=== PATIENT | female | born 1960 | race Caucasian/White ===

== ENCOUNTER 2021-01-16 12:48 | Emergency (ER) | payer OTHER ==
--- NOTE | 2021-01-16 13:01 | EDM.PDOC ---
ED HPI GENERAL MEDICAL PROBLEM - General Stated Complaint: SOB Time Seen by Provider: 01/16/21 13:00 Source of Information: Reports: Patient History Limitations: Reports: No Limitations - History of Present Illness INITIAL COMMENTS - FREE TEXT/NARRATIVE: 60-year-old female who reports at about a little dizzy and somewhat nauseated and she felt that her blood sugar might be low. She states that she had just taken her diabetic shot (Soliqua) in preparation to eat something for lunch and began to feel feel the above symptoms. She ate 2 bars with glucose. She states she was still feeling poorly after this and was feeling very dizzy and weak and somewhat nauseated and also felt very hot all over and was sweating resents to the emergency department via private vehicle with similar complaints. She did not act her blood sugar there but her blood sugar here was 75. She also reports that she was feeling very chilled and was quite diaphoretic. Her temperature at that time was 95.8. She had had nausea but no vomiting. Prior to this, she reports she was feeling quite well and had had no problems. She had been eating and drinking normally. He had had no dysuria or hematuria. No cough or nasal congestion. No sore throat. Approximately 10 days ago she did have some episodic dizziness that was associated with one episode of vomiting but that has since resolved and she has had no other symptoms since then. She reports she has been taking her medications as directed. She denies any pain now. She rates her pain as a 0/10. There are no other associated signs or symptoms. There are no other modifying factors. Onset: Today (At about 11:30 AM to 12 noon) Duration: Constant (Acute onset.) Location: Reports: Other (Not applicable) Quality: Reports: Other (Not applicable) Improves with: Reports: None Worsens with: Reports: None Context: Reports: Other (As above.) Associated Symptoms: Reports: Fever/Chills (Sweating. 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) - Related Data Allergies Allergy/AdvReac Type Severity Reaction Status Date / Time Sulfa (Sulfonamide Allergy Rash Verified 01/16/21 13:03 Antibiotics) Home Meds: Home Meds Albuterol Sulfate [Albuterol Sulfate Hfa] 1 puff INH ASDIRECTED PRN 01/16/21 [History] Benzonatate 200 mg PO ASDIRECTED PRN 01/16/21 [History] Clopidogrel Bisulfate [Clopidogrel] 75 mg PO DAILY 01/16/21 [History] Escitalopram [Lexapro] 20 mg PO BEDTIME 01/16/21 [History] Insulin Glargine/Lixisenatide [Soliqua 100 Unit-33 Mcg/ml Pen] 34 units SUBCUT DAILY 01/16/21 [History] Losartan [Cozaar] 50 mg PO DAILY 01/16/21 [History] atorvaSTATin Calcium [Lipitor] 40 mg PO DAILY 01/16/21 [History] cephALEXin [Keflex] 500 mg PO TID 7 Days #21 cap 01/16/21 [Rx] metFORMIN HCl [Metformin HCl] 1,000 mg PO BID 01/16/21 [History] Past Medical History Cardiovascular History: Reports: CAD, High Cholesterol, Hypertension, [place] Psychiatric History: Reports: Anxiety, Depression Endocrine/Metabolic History: Reports: Diabetes, Type II - Past Surgical History Musculoskeletal Surgical History: Reports: ORIF (Left wrist and right ankle) Oncologic Surgical History: Reports: Biopsy of Breast (2) Social & Family History - Tobacco Use Tobacco Use Status *Q: Unknown Ever Used Tobacco (Nonsmoker) - Alcohol Use Alcohol Use History: No - Recreational Drug Use Recreational Drug Type: Reports: Marijuana/Hashish - Living Situation & Occupation Occupation: Employed ED ROS GENERAL - Review of Systems Review Of Systems: See Below Constitutional: Reports: Chills, Diaphoresis HEENT: Denies: Throat Pain, Throat Swelling Respiratory: Denies: Shortness of Breath, Cough Cardiovascular: Reports: Lightheadedness. Denies: Chest Pain, Dyspnea on Exertion Endocrine: Reports: Low Glucose GI/Abdominal: Reports: Nausea, Vomiting. Denies: Abdominal Pain, Diarrhea : Denies: Dysuria, Flank Pain, Hematuria Musculoskeletal: Denies: Back Pain, Leg Pain Skin: Reports: Diaphoresis. Denies: Rash Neurological: Reports: Dizziness, Other (Or syncope) Hematologic/Lymphatic: Denies: Easy Bleeding, Easy Bruising Immunologic: Reports: Other (Patient has been vaccinated against Covid and did have breakthrough Covid infection) ED EXAM, GENERAL - Physical Exam Exam: See Below Exam Limited By: No Limitations General Appearance: Alert, WD/WN, Moderate Distress (Reports that she feels quite she is diaphoretic. There is no rash or distress.) Eye Exam: Bilateral Eye: EOMI, Normal Inspection (Sclera are anicteric), PERRL Ears: Normal External Exam, Hearing Grossly Normal Ear Exam: Bilateral Ear: Auricle Normal Nose: Normal Inspection, Normal Mucosa, No Blood Throat/Mouth: Normal Lips, Normal Voice, Other (Somewhat dry mucous membranes. No erythema.) Head: Atraumatic, Normocephalic Neck: Normal Inspection, Supple, Non-Tender, Full Range of Motion Respiratory/Chest: No Respiratory Distress, Lungs Clear, Normal Breath Sounds, No Accessory Muscle Use, Chest Non-Tender Cardiovascular: Normal Peripheral Pulses, Regular Rate, Rhythm, No Murmur Peripheral Pulses: 2+: Radial (L), Radial (R), Dorsalis Pedis (L), Dorsalis Pedis (R) GI/Abdominal: Normal Bowel Sounds, Soft, Non-Tender, No Mass Back Exam: Normal Inspection, Full Range of Motion. No: CVA Tenderness (R), CVA Tenderness (L) Extremities: Normal Inspection, Normal Range of Motion, Non-Tender, No Pedal Edema, Normal Capillary Refill Neurological: Alert, Oriented, CN II-XII Intact, Normal Cognition, No Motor/Sensory Deficits Psychiatric: Normal Affect Skin Exam: Intact, Normal Color, No Rash, Cool (Mild), Diaphoretic (Mild) #1 Interpretation EKG Date: 01/16/21 Time: 12:56 Rhythm: NSR Rate (Beats/Min): 70 [place]: Normal P-Wave: Present QRS: Other (Poor R-wave progression) ST-T: Other (Nonspecific ST-T abnormalities) QT: Normal Comparison: NA - No Prior EKG Course - Vital Signs Last Recorded V/S: Last Vital Signs Temp 35.5 C L 01/16/21 12:48 Pulse 76 01/16/21 12:48 Resp 20 01/16/21 12:48 BP 181/85 H 01/16/21 12:48 Pulse Ox 100 01/16/21 12:48 - Orders/Labs/Meds Orders: Active Orders 24 hr Category Date Time Status CULTURE URINE [RM] Stat Lab 01/16/21 14:51 Received Peripheral IV Insertion Adult [OM.PC] Routine Oth 01/16/21 13:04 Ordered EKG 12 Lead [EK] Routine Ther 11/19/21 13:04 Ordered Labs: Laboratory Tests 01/16/21 01/16/21 01/16/21 Range/Units 13:00 13:25 13:25 WBC 14.8 H (3.0-10.3) x10-3/uL RBC 5.20 (3.60-5.20) x10(6)uL Hgb 15.1 (11.4-15.5) g/dL Hct 45.6 (34.2-48.2) % MCV 87.6 (76.7-100.5) fL MCH 29.0 (23.9-33.9) pg MCHC 33.1 (31.9-34.8) g/dL RDW 13.5 (12.3-16.5) % Plt Count 194 (151-488) x10(3)uL MPV 8.1 (7.1-12.4) fL Neut % (Auto) 81.0 H (30.8-76.2) % Lymph % (Auto) 13.4 L (18.4-52.1) % [place] % (Auto) 4.8 (4.4-15.7) % Eos % (Auto) 0.5 L (0.6-8.1) % Baso % (Auto) 0.3 (0.2-1.5) % Neut # (Auto) 12.0 H (1.5-6.3) x10-3/uL Lymph # (Auto) 2.0 (1.0-4.4) x10-3/uL [place] # (Auto) 0.7 (0.3-1.0) x10-3/uL Eos # (Auto) 0.1 (0.0-0.8) x10-3/uL Baso # (Auto) 0.0 (0.0-0.1) x10-3/uL Sodium 141 (135-145) mmol/L Potassium 3.1 L (3.5-5.3) mmol/L Chloride 103 (100-110) mmol/L Carbon Dioxide 22 (21-32) mmol/L BUN 12 (7-18) mg/dL Creatinine 1.0 (0.55-1.02) mg/dL Est Cr Clr Drug Dosing TNP Estimated GFR (MDRD) 57 L (>60) BUN/Creatinine Ratio 12.0 (9-20) Glucose 76 L (80-116) mg/dL POC Glucose 75 L (80-116) mg/dL Lactic Acid (0.4-2.0) mmol/L Calcium 8.6 (8.6-10.2) mg/dL Magnesium 1.7 L (1.8-2.5) mg/dL Total Bilirubin 0.9 (0.1-1.3) mg/dL AST 16 (5-25) IU/L ALT 23 (12-36) U/L Alkaline Phosphatase 122 H (56-112) IU/L Troponin I (4.0-60.3) pg/mL C-Reactive Protein (0.5-0.9) mg/dL Total Protein 7.8 (6.0-8.0) g/dL Albumin 4.1 (3.2-4.6) g/dL Globulin 3.7 g/dL Albumin/Globulin Ratio 1.1 Urine Color (YELLOW) Urine Appearance (CLEAR) Urine pH (5.0-6.5) Ur Specific [place] (1.010-1.025) Urine Protein (NEGATIVE) mg/dL Urine Glucose (UA) (NORMAL) mg/dL Urine Ketones (NEGATIVE) mg/dL Urine Occult Blood (NEGATIVE) Urine Nitrite (NEGATIVE) Urine Bilirubin (NEGATIVE) Urine Urobilinogen (NEGATIVE) mg/dL Ur Leukocyte Esterase (NEGATIVE) Urine RBC (0-5) Urine WBC (0-5) Ur Squamous Epith Cells (NS,R,O) Urine Bacteria (NS) 01/16/21 01/16/21 01/16/21 Range/Units 13:25 13:25 14:04 WBC (3.0-10.3) x10-3/uL RBC (3.60-5.20) x10(6)uL Hgb (11.4-15.5) g/dL Hct (34.2-48.2) % MCV (76.7-100.5) fL MCH (23.9-33.9) pg MCHC (31.9-34.8) g/dL RDW (12.3-16.5) % Plt Count (151-488) x10(3)uL MPV (7.1-12.4) fL Neut % (Auto) (30.8-76.2) % Lymph % (Auto) (18.4-52.1) % Hartley % (Auto) (4.4-15.7) % Eos % (Auto) (0.6-8.1) % Baso % (Auto) (0.2-1.5) % Neut # (Auto) (1.5-6.3) x10-3/uL Lymph # (Auto) (1.0-4.4) x10-3/uL [place] # (Auto) (0.3-1.0) x10-3/uL Eos # (Auto) (0.0-0.8) x10-3/uL Baso # (Auto) (0.0-0.1) x10-3/uL Sodium (135-145) mmol/L Potassium (3.5-5.3) mmol/L Chloride (100-110) mmol/L Carbon Dioxide (21-32) mmol/L BUN (7-18) mg/dL Creatinine (0.55-1.02) mg/dL Est Cr Clr Drug Dosing Estimated GFR (MDRD) (>60) BUN/Creatinine Ratio (9-20) Glucose (80-116) mg/dL POC Glucose 200 H D (80-116) mg/dL Lactic Acid 4.6 H* (0.4-2.0) mmol/L Calcium (8.6-10.2) mg/dL Magnesium (1.8-2.5) mg/dL Total Bilirubin (0.1-1.3) mg/dL AST (5-25) IU/L ALT (12-36) U/L Alkaline Phosphatase (56-112) IU/L Troponin I 15.3 (4.0-60.3) pg/mL C-Reactive Protein < 0.2 L (0.5-0.9) mg/dL Total Protein (6.0-8.0) g/dL Albumin (3.2-4.6) g/dL Globulin g/dL Albumin/Globulin Ratio Urine Color (YELLOW) Urine Appearance (CLEAR) Urine pH (5.0-6.5) Ur Specific [place] (1.010-1.025) Urine Protein (NEGATIVE) mg/dL Urine Glucose (UA) (NORMAL) mg/dL Urine Ketones (NEGATIVE) mg/dL Urine Occult Blood (NEGATIVE) Urine Nitrite (NEGATIVE) Urine Bilirubin (NEGATIVE) Urine Urobilinogen (NEGATIVE) mg/dL Ur Leukocyte Esterase (NEGATIVE) Urine RBC (0-5) Urine WBC (0-5) Ur Squamous Epith Cells (NS,R,O) Urine Bacteria (NS) 01/16/21 01/16/21 01/16/21 Range/Units 14:40 14:51 15:24 WBC (3.0-10.3) x10-3/uL RBC (3.60-5.20) x10(6)uL Hgb (11.4-15.5) g/dL Hct (34.2-48.2) % MCV (76.7-100.5) fL MCH (23.9-33.9) pg MCHC (31.9-34.8) g/dL RDW (12.3-16.5) % Plt Count (151-488) x10(3)uL MPV (7.1-12.4) fL Neut % (Auto) (30.8-76.2) % Lymph % (Auto) (18.4-52.1) % [place] % (Auto) (4.4-15.7) % Eos % (Auto) (0.6-8.1) % Baso % (Auto) (0.2-1.5) % Neut # (Auto) (1.5-6.3) x10-3/uL Lymph # (Auto) (1.0-4.4) x10-3/uL [place] # (Auto) (0.3-1.0) x10-3/uL Eos # (Auto) (0.0-0.8) x10-3/uL Baso # (Auto) (0.0-0.1) x10-3/uL Sodium (135-145) mmol/L Potassium (3.5-5.3) mmol/L Chloride (100-110) mmol/L Carbon Dioxide (21-32) mmol/L BUN (7-18) mg/dL Creatinine (0.55-1.02) mg/dL Est Cr Clr Drug Dosing Estimated GFR (MDRD) (>60) BUN/Creatinine Ratio (9-20) Glucose (80-116) mg/dL POC Glucose 198 H 241 H (80-116) mg/dL Lactic Acid (0.4-2.0) mmol/L Calcium (8.6-10.2) mg/dL Magnesium (1.8-2.5) mg/dL Total Bilirubin (0.1-1.3) mg/dL AST (5-25) IU/L ALT (12-36) U/L Alkaline Phosphatase (56-112) IU/L Troponin I (4.0-60.3) pg/mL C-Reactive Protein (0.5-0.9) mg/dL Total Protein (6.0-8.0) g/dL Albumin (3.2-4.6) g/dL Globulin g/dL Albumin/Globulin Ratio Urine Color Yellow (YELLOW) Urine Appearance Clear (CLEAR) Urine pH 5.0 (5.0-6.5) Ur Specific [place] 1.015 (1.010-1.025) Urine Protein Negative (NEGATIVE) mg/dL Urine Glucose (UA) 100 H (NORMAL) mg/dL Urine Ketones Negative (NEGATIVE) mg/dL Urine Occult Blood Negative (NEGATIVE) Urine Nitrite Negative (NEGATIVE) Urine Bilirubin Negative (NEGATIVE) Urine Urobilinogen Normal (NEGATIVE) mg/dL Ur Leukocyte Esterase Large H (NEGATIVE) Urine RBC 0-5 (0-5) Urine WBC 20-30 H (0-5) Ur Squamous Epith Cells Moderate H (NS,R,O) Urine Bacteria Moderate H (NS) 01/16/21 01/16/21 01/16/21 Range/Units 15:45 18:30 19:10 WBC (3.0-10.3) x10-3/uL RBC (3.60-5.20) x10(6)uL Hgb (11.4-15.5) g/dL Hct (34.2-48.2) % MCV (76.7-100.5) fL MCH (23.9-33.9) pg MCHC (31.9-34.8) g/dL RDW (12.3-16.5) % Plt Count (151-488) x10(3)uL MPV (7.1-12.4) fL Neut % (Auto) (30.8-76.2) % Lymph % (Auto) (18.4-52.1) % [place] % (Auto) (4.4-15.7) % Eos % (Auto) (0.6-8.1) % Baso % (Auto) (0.2-1.5) % Neut # (Auto) (1.5-6.3) x10-3/uL Lymph # (Auto) (1.0-4.4) x10-3/uL [place] # (Auto) (0.3-1.0) x10-3/uL Eos # (Auto) (0.0-0.8) x10-3/uL Baso # (Auto) (0.0-0.1) x10-3/uL Sodium (135-145) mmol/L Potassium (3.5-5.3) mmol/L Chloride (100-110) mmol/L Carbon Dioxide (21-32) mmol/L BUN (7-18) mg/dL Creatinine (0.55-1.02) mg/dL Est Cr Clr Drug Dosing Estimated GFR (MDRD) (>60) BUN/Creatinine Ratio (9-20) Glucose (80-116) mg/dL POC Glucose 213 H (80-116) mg/dL Lactic Acid 3.4 H* 2.3 H* (0.4-2.0) mmol/L Calcium (8.6-10.2) mg/dL Magnesium (1.8-2.5) mg/dL Total Bilirubin (0.1-1.3) mg/dL AST (5-25) IU/L ALT (12-36) U/L Alkaline Phosphatase (56-112) IU/L Troponin I (4.0-60.3) pg/mL C-Reactive Protein (0.5-0.9) mg/dL Total Protein (6.0-8.0) g/dL Albumin (3.2-4.6) g/dL Globulin g/dL Albumin/Globulin Ratio Urine Color (YELLOW) Urine Appearance (CLEAR) Urine pH (5.0-6.5) Ur Specific [place] (1.010-1.025) Urine Protein (NEGATIVE) mg/dL Urine Glucose (UA) (NORMAL) mg/dL Urine Ketones (NEGATIVE) mg/dL Urine Occult Blood (NEGATIVE) Urine Nitrite (NEGATIVE) Urine Bilirubin (NEGATIVE) Urine Urobilinogen (NEGATIVE) mg/dL Ur Leukocyte Esterase (NEGATIVE) Urine RBC (0-5) Urine WBC (0-5) Ur Squamous Epith Cells (NS,R,O) Urine Bacteria (NS) Meds: Medications Discontinued Medications Generic Name Dose Route Start Last Admin Trade Name Dewey PRN Reason Stop Dose Admin Ceftriaxone Sodium 1 gm 01/16/21 16:14 01/16/21 16:49 Ceftriaxone 1 Gm Vial IVPUSH 01/16/21 16:15 1 gm ONETIME ONE Administration Dextrose/Water 50 ml 01/16/21 13:05 01/16/21 13:32 50% Dextrose In Water 50 Ml Syringe IVPUSH 01/16/21 13:06 50 ml ONETIME ONE Administration Sodium Chloride 500 mls @ 999 mls/hr 01/16/21 13:05 01/16/21 13:32 Normal Saline IV 01/16/21 13:35 999 mls/hr .BOLUS ONE Administration Sodium Chloride 1,000 mls @ 150 mls/hr 01/16/21 13:15 01/16/21 14:54 Normal Saline IV 150 mls/hr ASDIRECTED OPAL Administration Sodium Chloride 500 mls @ 999 mls/hr 01/16/21 13:51 01/16/21 14:05 Normal Saline IV 01/16/21 14:21 999 mls/hr .BOLUS ONE Administration Magnesium Sulfate 2 gm/ Premix 50 mls @ 100 mls/hr 01/16/21 14:38 01/16/21 14:53 IV 01/16/21 15:07 100 mls/hr ONETIME ONE Administration Sodium Chloride 1,000 mls @ 999 mls/hr 01/16/21 16:09 01/16/21 16:13 Normal Saline IV 01/16/21 17:09 999 mls/hr .BOLUS ONE Administration Sodium Chloride 1,000 mls @ 999 mls/hr 01/16/21 17:39 Normal Saline IV 01/16/21 18:39 .BOLUS ONE Potassium Chloride 40 meq 01/16/21 15:59 01/16/21 16:13 Potassium Chloride 20 Meq Packet PO 01/16/21 16:00 40 meq ONETIME ONE Administration Sodium Chloride 10 ml 01/16/21 13:04 01/16/21 13:10 Sodium Chloride 0.9% 10 Ml Syringe FLUSH 10 ml ASDIRECTED PRN Administration Keep Vein Open - Re-Assessments/Exams Free Text/Narrative Re-Assessment/Exam: 01/16/21 14:45: White blood cell count is 14.8. Hemoglobin is 15.1. Platelet count is normal. Sodium is 141. Potassium is 3.1. BUN is 12 and creatinine is 1.0. Glucose 76. LFTs are normal. Magnesium level is 1.7. CRP was negative. Lactic acid was 4.6. The patient is receiving IV normal saline as a bolus. She feels improved. Her temperature is now up to 96.8. I have given the patient D50 IV. We will monitor her glucoses closely. I am awaiting the urine result. We will plan on repeating her lactic acid at 2 hours post initial lactic acid. 01/16/21 15:30: The patient has urinated. She was able walk to the bathroom and had no problems doing this. Her urinalysis did show 20-30 white cells 5 per field and some bacteria present. I will send this urine for culture. She has also received magnesium 2 g IV and I will give the patient potassium chloride 40 mEq orally. The patient reports she feels much improved. Her blood glucoses have been in the 200 range. She was, in addition, able to eat some lunch. No more nausea. No more vomiting. No weakness or dizziness. We are awaiting the repeat lactic acid. 01/16/21 16:10: Repeat lactic acid 3.4. The patient is maintaining hemodynamically stable. I think the lactic acid elevation is secondary to the patient's hypoglycemic episode. I will, however, give the patient other 1 L bolus of normal saline IV. I will also treat the patient with Rocephin 1 g IV for possible UTI. 01/16/21 18:55: Repeat lactic acid is 2.3. The patient feels much improved. She has remained hemodynamically stable. She has taken liquids well. Her last blood sugar was in the 200 range. She feels ready for discharge. She has ambulated well without any problems. I will place the patient on Keflex 500 mg 3 times a day for 7 days. I will also have her check her blood sugars 3 times a day before meals and at bedtime. She will need follow-up with her primary provider as well. Precautions and reasons for return to the emergency department were discussed with the patient all she was in the emergency department or detailed in the patient's discharge instructions. Departure - Departure Time of Disposition: 19:15 Disposition: Home, Self-Care 01 Condition: Good Clinical Impression: Hypoglycemic episode in patient with diabetes mellitus, Hypomagnesemia, Lactic acidosis, Hypokalemia UTI (urinary tract infection) Qualifiers: Urinary tract infection type: site unspecified Hematuria presence: without hematuria Qualified Code(s): N39.0 - Urinary tract infection, site not specified Hypothermia Qualifiers: Encounter type: initial encounter Qualified Code(s): T68.XXXA - Hypothermia, initial encounter Diabetes mellitus type 2, uncontrolled Qualifiers: Glycemic state: with hypoglycemia Coma presence: without coma Qualified Code(s): E11.649 - Type 2 diabetes mellitus with hypoglycemia without coma - Discharge Information Prescriptions: cephALEXin [Keflex] 500 mg PO TID 7 Days #21 cap Instructions: Hypomagnesemia, Urinary Tract Infection, Adult, [id number], Hypothermia, Hypoglycemia, [id number] Referrals: Dinora Wilson ETHNOLOGY TEACHER [Primary Care Provider] - Forms: ED Department Discharge Additional Instructions: Your blood sugar was low, probably for an extended period of time. This caused you to have hypothermia or low-temperature. It also caused a build up of acid in your blood. Your other blood tests were reassuring except for a mildly low magnesium and a mildly low potassium. You were given replacements of both of these in the emergency department. He were also given IV fluid hydration to flush the acid out of your body. He also appear to have a urinary tract infection and your started on antibiotics for this. 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 You need to check your blood sugars more frequently for the next few days and keep a record of them. I would advise that he follow-up with your primary provider this coming week. No work until 01/19/2021. Increase your fluid intake. Back to the emergency department for vomiting, severe weakness, or shaking chills, trouble breathing or any other concerning signs or symptoms. - My Orders Last 24 Hours: My Active Orders 01/16/21 13:04 Peripheral IV Insertion Adult [OM.PC] Routine EKG 12 Lead [EK] Routine 01/16/21 14:51 CULTURE URINE [RM] Stat - Assessment/Plan Last 24 Hours: My Active Orders 01/16/21 13:04 Peripheral IV Insertion Adult [OM.PC] Routine EKG 12 Lead [EK] Routine 01/16/21 14:51 CULTURE URINE [RM] Stat
[2021-01-16] MEDS: Sodium Chloride 0.9% 10 ML Syringe FLUSH PRN (13:10)
[2021-01-16] MEDS: 50% Dextrose in Water 50 ML Syringe IVPUSH ONE (13:32)
[2021-01-16] MEDS: Sodium Chloride 0.9% 500 ML IV ONE ×2 (13:32→14:05)
[2021-01-16] MEDS: Magnesium Sulfate/Water 2 GM in Premix Bag 1 BAG IV ONE (14:53)
[2021-01-16] MEDS: Sodium Chloride 0.9% 1,000 ML IV SCH (14:54)
[2021-01-16] MEDS: Sodium Chloride 0.9% 1,000 ML IV ONE (16:13)
[2021-01-16] MEDS: Potassium Chloride 20 MEQ Packet PO ONE (16:13)
[2021-01-16] MEDS: cefTRIAXone 1 GM Vial IVPUSH ONE (16:49)
[2021-01-16] MEDS ORDERED: Sodium Chloride 0.9% 1,000 ML IV ONE (17:39)
== END 2021-01-16 19:32 | disposition home or self-care (01) ==
LOC: FB.ED 12:48
DX: T68.XXXA Hypothermia, initial encounter (principal); E11.649 Type 2 diabetes mellitus with hypoglycemia without coma; E83.42 Hypomagnesemia; E11.10 Type 2 diabetes mellitus with ketoacidosis without coma; E87.6 Hypokalemia; N39.0 Urinary tract infection, site not specified; I25.10 Atherosclerotic heart disease of native coronary artery without angina pectoris; E78.00 Pure hypercholesterolemia, unspecified; I10 Essential (primary) hypertension; I25.2 Old myocardial infarction; Z88.2 Allergy status to sulfonamides; Z79.4 Long term (current) use of insulin; Z79.02 Long term (current) use of antithrombotics/antiplatelets; Z79.899 Other long term (current) drug therapy
CPT/HCPCS: 36415; 80053; 81001; 82947; 83605; 83735; 84484; 85025; 86140; 87086; 93005; 96365; 96375; 99284; A9270; J0696; J3475; J7030; J7040

== ENCOUNTER 2022-07-02 08:00 | Day surgery (SDC) | payer OTHER ==
[2022-07-02] MEDS ORDERED: Propofol 200 MG/20 ML SDV IV ONE (08:01)
[2022-07-02] MEDS ORDERED: Glycopyrrolate 0.2 MG/ML 5 ML MDV IV ONE (08:01)
[2022-07-02] MEDS ORDERED: Lactated Ringers 1,000 ML IV SCH (08:15)
[2022-07-02] MEDS ORDERED: Sodium Chloride 0.9% 10 ML Syringe FLUSH PRN (08:15)
[2022-07-02] MEDS ORDERED: Simethicone Drops 40 MG/0.6 ML 30 ML Bottle ONE (09:49)
== END 2022-07-02 11:04 | disposition home or self-care (01) ==
LOC: FB.SDS 08:00
PROVIDERS: ATTEND Surgery
DX: Z12.11 Encounter for screening for malignant neoplasm of colon (principal); D12.6 Benign neoplasm of colon, unspecified; E11.9 Type 2 diabetes mellitus without complications; J30.9 Allergic rhinitis, unspecified; I25.2 Old myocardial infarction; E78.5 Hyperlipidemia, unspecified; I10 Essential (primary) hypertension; Z87.891 Personal history of nicotine dependence; Z86.010 Personal history of colon polyps; Z79.84 Long term (current) use of oral hypoglycemic drugs; Z79.82 Long term (current) use of aspirin; Z79.4 Long term (current) use of insulin; Z79.899 Other long term (current) drug therapy; Z88.2 Allergy status to sulfonamides
CPT/HCPCS: 00812; 82947; 88305; A9270-GY; J2704; J3490; J7120